=== PATIENT | male | born 2000 | race Native Hawaiian/Other Pacific Islander ===

== ENCOUNTER 2020-06-03 08:02 | Outpatient (CLI) | payer BC, OTHER | END 2020-06-03 19:58 | disposition home or self-care (01) | LOC: LAB 08:02 | PROVIDERS: ATTEND Nurse Practitioner Family | DX: R05 Cough (principal); J02.9 Acute pharyngitis, unspecified; R51.9 Headache, unspecified; R53.83 Other fatigue; R07.89 Other chest pain; Z86.19 Personal history of other infectious and parasitic diseases ==